=== PATIENT | male | born 1980 | race Caucasian/White ===

== ENCOUNTER 2017-07-17 11:56 | Inpatient (IN) | payer SELFPAY ==
[2017-07-17] VITALS (11 sets, daily range): BP systolic 87–141; BP diastolic 48–77; PULSE 82–103; RESP 18–24; TEMP 97.8–98.6; O2SAT 95–100
[~2017-07-17] VITALS: Ht 188 cm; Wt 81.0 kg
[2017-07-17] MEDS ORDERED: SYNT175T PO (12:07)
[2017-07-17] MEDS ORDERED: LEVEMIR SQ (12:07)
[2017-07-17] MEDS ORDERED: HUMALOG SQ (12:07)
[2017-07-17] MEDS ORDERED: CELE200C PO (12:08)
[2017-07-17] MEDS ORDERED: GABA800T PO (12:08)
[2017-07-17] MEDS ORDERED: SODIUM CHLORIDE 0.9% FLUSH 10 ML FLUSH IVF PRN (12:30)
[2017-07-17 12:32] LABS: BLOOD GAS VENOUS BASE EXCESS -22.9 mmol/L (-2-2); BLOOD GAS VENOUS HCO3 5 mmol/L (22-26); BLOOD GAS VENOUS O2 CONTENT 8.1 Vol % (9.0-17.0); BLOOD GAS VENOUS O2 HGB SAT 41 % (70-76); BLOOD GAS VENOUS PCO2 18 mmHg (44-48); BLOOD GAS VENOUS PO2 26 mmHg (35-40); BLOOD GAS VENOUS pH 7.09 (7.360-7.400); TEMP CORR TO 98.6
[2017-07-17 12:33] LABS: CRITICAL VALUE YES; FIO2 21 %; STAT YES
[2017-07-17] MEDS ORDERED: SODIUM CHLOR 0.9% 1000 ML INJ 1,000 ML IV ONE (12:49)
[2017-07-17 12:59] LABS: AUTOMATED NEUTROPHIL # 8.3 TH/MM3 (1.8-7.7); BASOPHIL # 0.1 TH/MM3 (0-0.2); BASOPHIL % 1.3 % (0.0-2.0); EOSINOPHIL % 0.4 % (0.0-4.0); HEMATOCRIT 43.1 % (39.0-51.0); HEMO FLAGS DIFF FINAL; LYMPH % 13.5 % (9.0-44.0); LYMPHOCYTE # 1.4 TH/MM3 (1.0-4.8); MEAN CELL VOLUME 105.8 FL (80.0-100.0); MEAN CORPUSCULAR HEMOGLOBIN 33.8 PG (27.0-34.0); MONO % 5.5 % (0.0-8.0); NEUT % 79.3 % (16.0-70.0); PLATELET COUNT 294 TH/MM3 (150-450); RED BLOOD COUNT 4.07 MIL/MM3 (4.50-5.90); RED CELL DISTRIBUTION WIDTH 14.4 % (11.6-17.2); WHITE BLOOD COUNT 10.4 TH/MM3 (4.0-11.0)
[2017-07-17 13:07] LABS: BACTERIA, URINE RARE /hpf; BLOOD, URINE TRACE (NEG); COMMENT (UR) CULT NOT INDICATED; CULTURE IF INDICATED CULT NOT INDICATED; GLUCOSE,URINE 1000 mg/dL (NEG); KETONE, URINE 150 mg/dL (NEG); MUCUS URINE FEW /lpf (OCC); NITRITE,URINE NEG (NEG); SQUAMOUS EPITHELIAL CELL URINE 1 /hpf (0-5); URINE COLOR LIGHT-YELLOW (YELLW/STRAW)
--- NOTE | 2017-07-17 13:10 | PD ---
HPI Chief Complaint: Diabetic Time Seen by Provider: 12:18 Travel History International Travel<30 days: No Contact w/Intl Traveler<30days: No Traveled to known affect area: No History of Present Illness HPI 37 yo m patient presents to the Ed for DKA, he states that this is his 3rd episode of DKA this year. He acknowledges extreme thirst, frequent urination and abdominal pain. He has no recent infections, changes to his medications or insulin and has not changed his diet. He BGL prior to coming to the ED and states that it was over 500. He denies CP, or SOB. He has Nausea but has not vomited. He denies changes in vision. He told us that he has felt this way for a couple of days but, he had been drinking a large volume of water and pedialyte to try and prevent the onset of DKA. States symptoms are moderate, associated with some abdominal cramping, in the context of DKA, gradually worsening. PFSH Past Medical History Diabetes: Yes (type 1 ) Patient Takes Glucophage: No Diminished Hearing: No Medical other: Yes Thyroid Disease: Yes Tetanus Vaccination: < 5 Years Influenza Vaccination: No Past Surgical History Other Surgery: Yes (THYROIDECTOMY) Social History Alcohol Use: No Tobacco Use: No Substance Use: No Allergies-Medications (Allergen,Severity, Reaction): Coded Allergies: aspirin (Verified Allergy, Severe, Anaphylaxis, 07/17/17) ketorolac (Verified Allergy, Severe, Anaphylaxis, 07/17/17) cefaclor (Verified Allergy, Unknown, hives, 07/17/17) penicillamine (Verified Allergy, Unknown, Anaphylaxis, 07/17/17) tramadol (Verified Adverse Reaction, Severe, nauseas, 07/17/17) Reported Meds & Prescriptions Reported Meds & Active Scripts Active Reported Celebrex (Celecoxib) 200 Mg Cap 200 Mg PO BID Gabapentin 800 Mg Tab 1,200 Mg PO TID Humalog Inj (Insulin Human Lispro) 1,000 Unit/10 Ml Vial 1-9 Units SQ ACHS Max dose at bedtime:( )units; sugars< 70,(0)units; sugars 150-199,(1)unit; sugars 200-249,(3)units; sugars 250-299,(5)units; sugars 300-349,(7)units; sugars more than 349,(9)units. Levemir Inj (Insulin Detemir) 1,000 unit/ 10 ML Vial 25 Units SQ HS Do not mix with any other Insulin. Synthroid (Levothyroxine Sodium) 175 Mcg Tab 175 Mcg PO DAILY Review of Systems Except as stated in HPI: all other systems reviewed are Neg Physical Exam Narrative GENERAL: Patient appears ill/dehydrated with Kussmaul respiration, laying in bed breathing heavily. SKIN: Warm and dry. HEAD: Atraumatic. Normocephalic. EYES: Pupils equal and round. No scleral icterus. No injection or drainage. ENT: No nasal bleeding or discharge. Mucous membranes dry. Mouth has chalky appearance and fruity odor NECK: Trachea midline. No JVD. CARDIOVASCULAR: sinus tachycardia. 2+ bilateral equal pulses in all 4 extremities, no murmur gallop or rub. RESPIRATORY: Kussmaul respirations. Breath sounds equal bilaterally. GASTROINTESTINAL: Abdomen soft, tender to minimal palpation in the suprapubic region, nondistended. Hepatic and splenic margins not palpable. MUSCULOSKELETAL: Extremities without clubbing, cyanosis, or edema. No obvious deformities. 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 No obvious cranial nerve deficits. Motor grossly within normal limits. Five out of 5 muscle strength in the arms and legs. Normal speech. PSYCHIATRIC: Appropriate mood and affect; insight and judgment normal. Data Data Last Documented VS Vital Signs Date Time Temp Pulse Resp B/P (MAP) Pulse Ox O2 Delivery O2 Flow Rate FiO2 07/17/17 12:25 18 100 Room Air 07/17/17 12:00 103 07/17/17 12:00 97.8 122/74 (90) Orders Orders Electrocardiogram (07/17/17 12:19) Complete Blood Count With Diff (07/17/17 12:19) Comprehensive Metabolic Panel (07/17/17 12:19) Magnesium (Mg) (07/17/17 12:19) Phosphorus (Po4) (07/17/17 12:19) Beta Hydroxybutyrate (Acetone) (07/17/17 12:19) Urinalysis - C+S If Indicated (07/17/17 12:19) Blood Gas Venous (Vbg) (07/17/17 12:19) Ecg Monitoring (07/17/17 12:19) Iv Access Insert/Monitor (07/17/17 12:19) Oximetry (07/17/17 12:19) NPO (07/17/17 12:19) Sodium Chlor 0.9% 1000 Ml Inj (Ns 1000 M (07/17/17 12:49) Sodium Chloride 0.9% Flush (Ns Flush) (07/17/17 12:30) Vascular Access Team Consult/P PRN (07/17/17 12:35) Vascular Poc Ultrasound (07/17/17 ) Water And Fire Technician / Telemetry [email or web address] (07/17/17 13:35) ^ Insert Iv (07/17/17 13:35) Diet Npo (07/17/17 Lunch) Sodium Chlor 0.9% 1000 Ml Inj (Ns 1000 M (07/17/17 13:35) Dext 5%-Nacl 0.9% 1000 Ml Inj (D5w-Ns 10 (07/17/17 13:35) Insulin Regular (Iv Infusion) (Novolin R (07/17/17 15:00) Potassium Chlor 20 Meq Premix (Kcl 20 Me (07/17/17 13:45) Potassium Chlor 20 Meq Premix (Kcl 20 Me (07/17/17 13:45) Potassium Chlor 20 Meq Premix (Kcl 20 Me (07/17/17 13:45) Potassium Chlor 20 Meq Premix (Kcl 20 Me (07/17/17 13:45) Sodium Bicarbonate 8.4% Inj (Sodium Bica (07/17/17 13:45) Sodium Bicarbonate 8.4% Inj (Sodium Bica (07/17/17 13:45) Sodium Phosphate Inj (Sodium Phosphate I (07/17/17 13:45) Hemoglobin (Hgb) A1c (07/17/17 13:35) Basic Metabolic Panel (Bmp) (07/17/17 18:35) Basic Metabolic Panel (Bmp) (07/18/17 00:35) Basic Metabolic Panel (Bmp) (07/18/17 06:35) Basic Metabolic Panel (Bmp) (07/18/17 12:35) Magnesium (Mg) (07/17/17 18:35) Magnesium (Mg) (07/18/17 00:35) Magnesium (Mg) (07/18/17 06:35) Magnesium (Mg) (07/18/17 12:35) Phosphorus (Po4) (07/17/17 18:35) Phosphorus (Po4) (07/18/17 00:35) Phosphorus (Po4) (07/18/17 06:35) Phosphorus (Po4) (07/18/17 12:35) Beta Hydroxybutyrate (Acetone) (07/18/17 00:35) Beta Hydroxybutyrate (Acetone) (07/18/17 12:35) Admit Order (Ed Use Only) (07/17/17 ) Labs Laboratory Tests Test 07/17/17 12:19 07/17/17 12:28 Blood Gas Puncture Site Blood Gas Patient Temperature 98.6 Venous Blood pH 7.09 Venous Blood Partial Pressure CO2 18 mmHg Venous Blood Partial Pressure O2 26 mmHg Venous Blood HCO3 5 mmol/L Venous Blood Oxygen Saturation 41 % Venous Blood Oxygen Content 8.1 Vol % Venous Blood Base Excess -22.9 mmol/L Blood Gas Inspired Oxygen 21 % White Blood Count 10.4 TH/MM3 Red Blood Count 4.07 MIL/MM3 Hemoglobin 13.8 GM/DL Hematocrit 43.1 % Mean Corpuscular Volume 105.8 FL Mean Corpuscular Hemoglobin 33.8 PG Mean Corpuscular Hemoglobin Concent 32.0 % Red Cell Distribution Width 14.4 % Platelet Count 294 TH/MM3 Mean Platelet Volume 8.2 FL Neutrophils (%) (Auto) 79.3 % Lymphocytes (%) (Auto) 13.5 % Monocytes (%) (Auto) 5.5 % Eosinophils (%) (Auto) 0.4 % Basophils (%) (Auto) 1.3 % Neutrophils # (Auto) 8.3 TH/MM3 Lymphocytes # (Auto) 1.4 TH/MM3 Monocytes # (Auto) 0.6 TH/MM3 Eosinophils # (Auto) 0.0 TH/MM3 Basophils # (Auto) 0.1 TH/MM3 CBC Comment DIFF FINAL Differential Comment Urine Color LIGHT-YELLOW Urine Turbidity CLEAR Urine pH 5.0 Urine Specific [place] 1.022 Urine Protein 30 mg/dL Urine Glucose (UA) 1000 mg/dL Urine Ketones 150 mg/dL Urine Occult Blood TRACE Urine Nitrite NEG Urine Bilirubin NEG Urine Urobilinogen LESS THAN 2.0 MG/DL Urine Leukocyte Esterase NEG Urine RBC 2 /hpf Urine WBC 6 /hpf Urine Squamous Epithelial Cells 1 /hpf Urine Bacteria RARE /hpf Urine Mucus FEW /lpf Microscopic Urinalysis Comment CULT NOT INDICATED Blood Urea Nitrogen 20 MG/DL Creatinine 1.54 MG/DL Random Glucose 485 MG/DL Total Protein 8.5 GM/DL Albumin 4.4 GM/DL Calcium Level 8.8 MG/DL Phosphorus Level 2.7 MG/DL Magnesium Level 1.9 MG/DL Alkaline Phosphatase 121 U/L Aspartate Amino Transf (AST/SGOT) 27 U/L Alanine Aminotransferase (ALT/SGPT) 48 U/L Total Bilirubin 0.5 MG/DL Sodium Level 129 MEQ/L Potassium Level 4.8 MEQ/L Chloride Level 99 MEQ/L Carbon Dioxide Level 5.0 MEQ/L Anion Gap 25 MEQ/L Estimat Glomerular Filtration Rate 51 ML/MIN B-Hydroxybutyrate 13.69 MMOL/L MDM Medical Decision Making Medical Screen Exam Complete: Yes Emergency Medical Condition: Yes Differential Diagnosis DKA, Type I DM, Dehydration, electrolyte abnormality, chronic hypothyroidism Narrative Course 2L IVF bolus, VBG, CMP, CBC, Urinalysis, BGL, Insulin (8 units/hr) once 2L bolus is complete. Patient high index suspicion for DKA, pH 7.0 with anion gap. Hemodynamically stable. Started on DKA protocol actually replacements as needed. The patient was discussed residents for admission to Dr. Espinoza. Critical Care Narrative Aggregate critical care time was 35 minutes. Time to perform other separately billable procedures was not included in the critical care time. My time did not include minutes spent treating any other patients simultaneously or on activities that did not directly contribute to the patient's treatment. The services I provided to this patient were to treat and/or prevent clinically significant deterioration that could result in: , disability, organ I provided critical care services requiring my management, as noted below: Chart data review, documentation time, medication orders and management, vital sign assessments/reviewing monitor data, ordering and reviewing lab tests, ordering and interpreting/reviewing x-rays and diagnostic studies, care of the patient and discussion of the patient with the admitting physicians. Diagnosis Primary Impression: DKA (diabetic ketoacidoses) Qualified Codes: E10.10 - Type 1 diabetes mellitus with ketoacidosis without coma Admitting Information Admitting Physician Requests: Admit Condition: Alexis Calixto MD Jul 17, 2017 13:10
[2017-07-17 13:20] LABS: ALT (GPT) 48 U/L (12-78); ANION GAP 25 MEQ/L (5-15); AST (GOT) 27 U/L (15-37); BLOOD UREA NITROGEN 20 MG/DL (7-18); CHLORIDE 99 MEQ/L (98-107); GLOMERULAR FILTRATION RATE 51 ML/MIN (>89); MAGNESIUM 1.9 MG/DL (1.5-2.5); POTASSIUM 4.8 MEQ/L (3.5-5.1); SODIUM (NA) 129 MEQ/L (136-145)
[2017-07-17 13:30] LABS: ALKALINE PHOSPHATASE 121 U/L (45-117); BETA-HYDROXYBUTYRATE 13.69 MMOL/L (0.00-0.39); TOTAL BILIRUBIN ADULT 0.5 MG/DL (0.2-1.0)
[2017-07-17] MEDS ORDERED: SODIUM CHLOR 0.9% 1000 ML INJ 1,000 ML IV SCH ×2 (13:35→17:15)
[2017-07-17] MEDS ORDERED: DEXT 5%-NACL 0.9% 1000 ML INJ 1,000 ML IV SCH ×2 (13:35→14:36)
[2017-07-17] MEDS ORDERED: SODIUM PHOSPHATE INJ 15 MMOL in SODIUM CHLORIDE 0.9% INJ 100 ML IV PRN ×2 (13:45→14:45)
[2017-07-17] MEDS ORDERED: POTASSIUM CHLOR 20 MEQ PREMIX 100 ML IV PRN ×10 (13:45→14:45)
[2017-07-17] MEDS ORDERED: SODIUM BICARBONATE 8.4% SOLN 50 MEQ/50 ML VIAL IV PUSH PRN ×4 (13:45→14:45)
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
[2017-07-17] MEDS ORDERED: ONDANSETRON HCL 4 MG/2 ML VIAL IVP PRN (14:45)
[2017-07-17] MEDS ORDERED: CHLORHEXIDINE GLUCONATE 2 % 1 PACK (2 CLOTHS) TOP PRN (14:45)
[2017-07-17] MEDS ORDERED: NALOXONE HCL 0.4 MG/ML AMP IV PUSH PRN (14:45)
[2017-07-17] MEDS ORDERED: ACETAMINOPHEN 325 MG TAB PO PRN (14:45)
[2017-07-17] MEDS ORDERED: SENNOSIDES 8.6 MG TAB PO PRN (14:45)
[2017-07-17] MEDS ORDERED: POTASSIUM CHLOR 40 MEQ PREMIX 100 ML IV PRN ×2 (14:45)
[2017-07-17] MEDS ORDERED: NS + KCL 40 MEQ INJ 1,000 ML IV SCH (14:45)
[2017-07-17] MEDS ORDERED: MAGNESIUM HYDROXIDE SUSP 30 ML CUP PO PRN (14:45)
[2017-07-17] MEDS ORDERED: MISCELLANEOUS NURSING INFORMATION XX SCH (14:45)
[2017-07-17] MEDS ORDERED: LACTULOSE SYRUP 20 GM/30 ML CUP PO PRN (14:45)
[2017-07-17] MEDS ORDERED: SODIUM CHLORIDE 0.9% FLUSH 10 ML FLUSH IV FLUSH PRN (14:45)
[2017-07-17] MEDS ORDERED: BISACODYL 10 MG SUPP RECTAL PRN (14:45)
[2017-07-17] MEDS ORDERED: IBUPROFEN 400 MG TAB PO SCH (15:00)
[2017-07-17] MEDS ORDERED: INSULIN REGULAR (IV INFUSION) 100 UNITS in SODIUM CHLORIDE 0.9% INJ 99 ML IV PRN (15:00)
[2017-07-17] MEDS ORDERED: POTASSIUM CHLORIDE INJ 40 MEQ in SODIUM CHLOR 0.45% 1000 ML INJ 1,000 ML IV SCH (15:15)
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
[2017-07-17] MEDS ORDERED: GABAPENTIN 400 MG CAP PO SCH (18:00)
[2017-07-17 18:33] LABS: BLOOD GAS VENOUS BASE EXCESS -21.2 mmol/L (-2-2); BLOOD GAS VENOUS HCO3 7 mmol/L (22-26); BLOOD GAS VENOUS O2 CONTENT 14.2 Vol % (9.0-17.0); BLOOD GAS VENOUS O2 HGB SAT 78 % (70-76); BLOOD GAS VENOUS PCO2 23 mmHg (44-48); BLOOD GAS VENOUS PO2 49 mmHg (35-40); TEMP CORR TO 98.6
[2017-07-17 18:50] LABS: CRITICAL VALUE YES
[2017-07-17 18:51] LABS: FIO2 21 %
[2017-07-17] MEDS ORDERED: GLUCAGON 1 MG/ML VIAL OTHER PRN (20:30)
[2017-07-17] MEDS ORDERED: DEXTROSE 50% IN WATER 50 ML VIAL(D50) IV PUSH PRN (20:30)
[2017-07-17] MEDS ORDERED: INSULIN ASPART SUPPLEMENTAL SCALE SQ SCH (21:00)
[2017-07-17] MEDS ORDERED: CELECOXIB 200 MG CAP PO SCH (21:00)
[2017-07-17] MEDS ORDERED: INSULIN DETEMIR 100 UNITS/ML VIAL SQ SCH ×3 (21:00→22:15)
[2017-07-17] MEDS ORDERED: SODIUM CHLORIDE 0.9% FLUSH 10 ML FLUSH IV FLUSH SCH (21:00)
[2017-07-17] MEDS ORDERED: DOCUSATE SODIUM 50 MG/SENNA 8.6 MG TAB PO SCH (21:00)
[2017-07-17 21:24] LABS: ANION GAP 16 MEQ/L (5-15); BICARBONATE 11.2 MEQ/L (21.0-32.0); BLOOD UREA NITROGEN 15 MG/DL (7-18); CHLORIDE 110 MEQ/L (98-107); GLOMERULAR FILTRATION RATE 60 ML/MIN (>89); MAGNESIUM 1.7 MG/DL (1.5-2.5); POTASSIUM 3.9 MEQ/L (3.5-5.1); SODIUM (NA) 137 MEQ/L (136-145)
[2017-07-17] MEDS ORDERED: CALCIUM GLUCONATE 500 MG TAB PO ONE (22:15)
[2017-07-17] MEDS ORDERED: DEXTROSE 5% IV SCH (22:15)
[2017-07-17] MEDS ORDERED: POTASSIUM CHLORIDE IV SCH (22:15)
[2017-07-17] MEDS ORDERED: NACL 0.225% IV SCH (22:15)
[2017-07-17 22:23] LABS: HEMOGLOBIN A1a 1.4 %; HEMOGLOBIN A1b 1.2 %; HEMOGLOBIN Ao 73.9 %; HEMOGLOBIN F 1.9 %; HEMOGLOBIN LA1C 3.2 %; HEMOGLOBIN P3 5.7 %
[2017-07-17] MEDS ORDERED: CALCIUM CARBONATE 1.25 GM (CA 500 MG) TAB PO SCH (23:30)
[2017-07-17 23:58] LABS: BLOOD GAS VENOUS BASE EXCESS -10.5 mmol/L (-2-2); BLOOD GAS VENOUS HCO3 15 mmol/L (22-26); BLOOD GAS VENOUS O2 CONTENT 14.5 Vol % (9.0-17.0); BLOOD GAS VENOUS O2 HGB SAT 93 % (70-76); BLOOD GAS VENOUS PCO2 34 mmHg (44-48); BLOOD GAS VENOUS PO2 76 mmHg (35-40); BLOOD GAS VENOUS pH 7.27 (7.360-7.400); TEMP CORR TO 98.6
[2017-07-17 23:59] LABS: CRITICAL VALUE YES; DRAW SITE IV LINE; FIO2 21 %; OXYGEN DEVICE ROOM AIR
[2017-07-18] VITALS (12 sets, daily range): BP systolic 75–92; BP diastolic 45–58; PULSE 72–86; RESP 14–25; TEMP 98.8; O2SAT 97
[2017-07-18] LABS: STAT NO
[2017-07-18] MEDS ORDERED: IBUPROFEN 400 MG TAB PO SCH
[2017-07-18 00:23] LABS: BETA-HYDROXYBUTYRATE 1.16 MMOL/L (0.00-0.39); BICARBONATE 17.7 MEQ/L (21.0-32.0); MAGNESIUM 1.8 MG/DL (1.5-2.5); POTASSIUM 3.8 MEQ/L (3.5-5.1)
[2017-07-18 00:39] LABS: CALCIUM-PROTEIN CORRECTED 7.9 MG/DL (8.5-10.1)
[2017-07-18] MEDS ORDERED: HYDROmorphone HCL PF 1 MG/ML VIAL IV PUSH PRN (01:30)
[2017-07-18] MEDS ORDERED: POTASSIUM CHLORIDE INJ 30 MEQ in SODIUM CHLOR 0.9% 1000 ML INJ 1,000 ML IV SCH (01:30)
[2017-07-18] MEDS ORDERED: SODIUM CHLORID 0.9% 500 ML INJ 500 ML IV ONE ×2 (02:00→04:45)
[2017-07-18 02:37] LABS: BICARBONATE 15.8 MEQ/L (21.0-32.0); POTASSIUM 4.5 MEQ/L (3.5-5.1)
[2017-07-18 02:49] LABS: CALCIUM-PROTEIN CORRECTED 7.9 MG/DL (8.5-10.1)
[2017-07-18] MEDS ORDERED: LORazepam 2 MG/ML VIAL IV PUSH ONE (03:00)
[2017-07-18] MEDS ORDERED: INSULIN ASPART 1,000 UNITS/10 ML VIAL SQ ONE (03:15)
[2017-07-18 04:00] LABS: AUTOMATED NEUTROPHIL # 7.4 TH/MM3 (1.8-7.7); BASOPHIL # 0.1 TH/MM3 (0-0.2); BASOPHIL % 0.6 % (0.0-2.0); EOSINOPHIL # 0.1 TH/MM3 (0-0.4); HEMATOCRIT 32.1 % (39.0-51.0); HEMO FLAGS DIFF FINAL; LYMPH % 19.6 % (9.0-44.0); MEAN CELL VOLUME 98.5 FL (80.0-100.0); MEAN CORPUSCULAR HEMOGLOBIN 32.6 PG (27.0-34.0); MEAN CORPUSCULAR HGB CONC 33.1 % (32.0-36.0); MONO % 6.6 % (0.0-8.0); NEUT % 72.2 % (16.0-70.0); PLATELET COUNT 253 TH/MM3 (150-450); RED BLOOD COUNT 3.26 MIL/MM3 (4.50-5.90); RED CELL DISTRIBUTION WIDTH 13.6 % (11.6-17.2); WHITE BLOOD COUNT 10.3 TH/MM3 (4.0-11.0)
[2017-07-18] MEDS ORDERED: CHLORHEXIDINE GLUCONATE 2 % 1 PACK (2 CLOTHS) TOP SCH (04:00)
[2017-07-18 04:16] LABS: BICARBONATE 16.8 MEQ/L (21.0-32.0); MAGNESIUM 1.7 MG/DL (1.5-2.5); POTASSIUM 3.9 MEQ/L (3.5-5.1)
[2017-07-18] MEDS ORDERED: LEVOTHYROXINE SODIUM 100 MCG TAB PO SCH (06:00)
[2017-07-18] MEDS ORDERED: LEVOTHYROXINE SODIUM 75 MCG TAB PO SCH (06:00)
--- NOTE | 2017-07-18 07:40 | PD.AMA ---
Against Medical Advice Note Diagnosis: (1) Metabolic acidosis (2) Diabetes type 1, uncontrolled (3) DKA (diabetic ketoacidoses) Discharge Disposition: Against Medical Advice Pt Condition on Discharge: Fair AMA Statement Patient Jay Cook has decided to leave the hospital against medical advice. This patient has the capacity to refuse care and understands the risks of leaving, including permanent disability and/or , and has had an opportunity to ask questions about his condition. The patient has been informed that he may return for care at any time. We would accept him back to our service. Jacquelyn Villarreal MD R1 Jul 18, 2017 07:40
[2017-07-18] MEDS ORDERED: LORazepam 1 MG TAB PO PRN (09:00)
--- NOTE | 2017-07-18 10:47 | EKG ---
Date Performed: 07/17/2017 Time Performed: 13:10:09 PTAGE: 37 years EKG: Sinus rhythm NORMAL ECG NO PREVIOUS TRACING DOCTOR: Patel Damico Interpretating Date/Time 07/18/2017 10:45:34
== END 2017-07-18 06:09 | disposition left against medical advice (07) | DRG 639 ==
LOC: NEPE 11:56 → NEDA 14:18 → HIME 15:15
PROVIDERS: ADMIT Family Medicine; ATTEND Family Medicine
DX: E10.10 Type 1 diabetes mellitus with ketoacidosis without coma (principal); N28.9 Disorder of kidney and ureter, unspecified; E89.0 Postprocedural hypothyroidism; E86.0 Dehydration; Z79.4 Long term (current) use of insulin; Z88.0 Allergy status to penicillin; Z88.5 Allergy status to narcotic agent; Z88.6 Allergy status to analgesic agent; Z89.021 Acquired absence of right finger(s)
CPT/HCPCS: 76937; 80048; 80053; 80307; 81001; 82010; 82805; 82948; 83036; 83735; 84100; 84155; 84443; 85025; 87040; 87086; 87641; 93005; 96360; G0481; J1170; J1815; J1817; J2060; J2405; J3480; J7030; J7040; J7042

== ENCOUNTER 2017-07-19 20:21 | Emergency (ER) | payer SELFPAY ==
[~2017-07-19] VITALS: Ht 188 cm; Wt 80.0 kg
[~2017-07-19 20:21] MED LIST: CELE200C PO; GABA800T PO; HUMALOG SQ; LEVEMIR SQ; SYNT175T PO
[2017-07-19 20:26] VITALS: BP 124/73; PULSE 96; RESP 18; TEMP 97.6; O2SAT 98
[2017-07-19] MEDS ORDERED: SODIUM CHLOR 0.9% 1000 ML INJ 1,000 ML IV ONE ×2 (20:47→21:17)
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
[2017-07-19] MEDS ORDERED: SODIUM CHLORIDE 0.9% FLUSH 10 ML FLUSH IVF PRN (21:00)
[2017-07-19 21:20] LABS: BLOOD GAS VENOUS BASE EXCESS 0.6 mmol/L (-2-2); BLOOD GAS VENOUS HCO3 24 mmol/L (22-26); BLOOD GAS VENOUS O2 HGB SAT 69 % (70-76); BLOOD GAS VENOUS PCO2 35 mmHg (44-48); BLOOD GAS VENOUS PO2 33 mmHg (35-40); BLOOD GAS VENOUS pH 7.45 (7.360-7.400); CRITICAL VALUE NO; FIO2 21 %; OXYGEN DEVICE ROOM AIR; STAT YES
[2017-07-19 21:45] LABS: BLOOD, URINE NEG (NEG); COMMENT (UR) CULT NOT INDICATED; CULTURE IF INDICATED CULT NOT INDICATED; GLUCOSE,URINE 1000 mg/dL (NEG); KETONE, URINE 10 mg/dL (NEG); NITRITE,URINE NEG (NEG); URINE COLOR COLORLESS (YELLW/STRAW)
[2017-07-19 21:47] VITALS: BP 104/62; PULSE 72; RESP 18; O2SAT 100
[2017-07-19] MEDS ORDERED: ONDANSETRON HCL 4 MG/2 ML VIAL IV PUSH ONE (22:15)
[2017-07-19] MEDS ORDERED: ACETAMINOPHEN 500 MG CPLT PO ONE (22:15)
[2017-07-19 22:21] LABS: ALKALINE PHOSPHATASE 109 U/L (45-117); ALT (GPT) 67 U/L (12-78); ANION GAP 8 MEQ/L (5-15); AST (GOT) 153 U/L (15-37); BETA-HYDROXYBUTYRATE 1.29 MMOL/L (0.00-0.39); BICARBONATE 26.1 MEQ/L (21.0-32.0); BLOOD UREA NITROGEN 16 MG/DL (7-18); CHLORIDE 98 MEQ/L (98-107); GLOMERULAR FILTRATION RATE 73 ML/MIN (>89); MAGNESIUM 1.5 MG/DL (1.5-2.5); SODIUM (NA) 132 MEQ/L (136-145); TOTAL BILIRUBIN ADULT 0.4 MG/DL (0.2-1.0)
--- NOTE | 2017-07-19 22:40 | RADRPT ---
EXAM DATE/TIME: 07/19/2017 22:11 [facility] COMPARISON: No previous studies available for comparison. INDICATIONS : Abdominal pain. ORAL CONTRAST: No oral contrast ingested. RADIATION DOSE: 6.64 CTDIvol (mGy) MEDICAL HISTORY : Seizures. Diabetes mellitus type 1. SURGICAL HISTORY : None. ENCOUNTER: Initial ACUITY: 1 day PAIN SCALE: 4/10 LOCATION: Abdomen TECHNIQUE: Volumetric scanning of the abdomen and pelvis was performed. Using automated exposure control and ad justment of the mA and/or kV according to patient size, radiation dose was kept as low as reasonably achievable to obtain optimal diagnostic quality images. DICOM format image data is available electro nically for review and comparison. FINDINGS: LOWER LUNGS: Small bilateral pleural effusions. LIVER: Homogeneous density without lesion for noncontrast technique. There is no dilation of the biliary tr ee. No calcified gallstones. SPLEEN: Normal size without lesion. PANCREAS: Within normal limits. KIDNEYS: Normal in size and shape. There is no mass, stone, or hydronephrosis. ADRENAL GLANDS: Within normal limits. VASCULAR: There is no aortic aneurysm. BOWEL/MESENTERY: No dilated loops of small large bowel. No evidence of free fluid. ABDOMINAL WALL: Within normal limits. RETROPERITONEUM: There is no lymphadenopathy. BLADDER: No wall thickening or mass. REPRODUCTIVE: Within normal limits. INGUINAL: There is no lymphadenopathy or hernia. MUSCULOSKELETAL: Right femoral plate. CONCLUSION: 1. Small bilateral pleural effusions and bibasilar atelectasis. 2. No acute findings in the abdomen/pelvis on this study performed without intravenous or oral contra st. Jay Gale MD on July 19, 2017 at 22:35 Board Certified Radiologist. This report was verified electronically.
[2017-07-19] MEDS ORDERED: INSULIN HUMAN REGULAR 1,000 UNITS/10 ML VIAL IV PUSH ONE (22:45)
[2017-07-19 23:18] LABS: AUTOMATED NEUTROPHIL # 7.9 TH/MM3 (1.8-7.7); BASOPHIL # 0.1 TH/MM3 (0-0.2); BASOPHIL % 0.7 % (0.0-2.0); EOSINOPHIL # 0.1 TH/MM3 (0-0.4); EOSINOPHIL % 1.5 % (0.0-4.0); HEMATOCRIT 33.9 % (39.0-51.0); HEMO FLAGS DIFF FINAL; LYMPH % 10.3 % (9.0-44.0); MEAN CELL VOLUME 99.8 FL (80.0-100.0); MONO % 4.3 % (0.0-8.0); NEUT % 83.2 % (16.0-70.0); PLATELET COUNT 212 TH/MM3 (150-450); RED CELL DISTRIBUTION WIDTH 13.8 % (11.6-17.2); WHITE BLOOD COUNT 9.6 TH/MM3 (4.0-11.0)
[2017-07-20] MEDS ORDERED: INSULIN HUMAN REGULAR 1,000 UNITS/10 ML VIAL IV PUSH ONE
[2017-07-20] MEDS ORDERED: DICYCLOMINE HCL 10 MG CAP PO ONE
== END 2017-07-20 02:47 | disposition home or self-care (01) ==
LOC: NEPC 20:21
DX: R10.84 Generalized abdominal pain (principal); E10.65 Type 1 diabetes mellitus with hyperglycemia; R31.9 Hematuria, unspecified; J90 Pleural effusion, not elsewhere classified; J98.11 Atelectasis; R56.9 Unspecified convulsions; J45.909 Unspecified asthma, uncomplicated; F32.9 Major depressive disorder, single episode, unspecified; E07.9 Disorder of thyroid, unspecified
CPT/HCPCS: 74176; 80053; 81001; 82010; 82805; 83735; 84100; 85025; 96361; 96374; 96375; 99285; J1815; J2405; J7030